=== PATIENT | male | born 1995 | race Caucasian/White ===

== ENCOUNTER 2019-06-23 13:45 | Emergency (ER) | payer BC ==
[~2019-06-23] VITALS: Ht 180.3 cm; Wt 70.2 kg
[2019-06-23 13:49] VITALS: BP 123/69
--- NOTE | 2019-06-23 14:06 | NUR ---
pt seen and evaluated by [facility], pt denies LOC at time of injury. pupils equal, round and reactive. no edema or erythema to face, no drainage noted from nose. pt given dc instructions with instructions to f/u with ENT. pt a&o, resps even and unlabored, amb to dc desk with steady gait, nadn at dc.
== END 2019-06-23 14:07 | disposition home or self-care (01) ==
LOC: ED 14:00
DX: S02.2XXA Fracture of nasal bones, initial encounter for closed fracture (principal); W21.02XA Struck by soccer ball, initial encounter; Y93.66 Activity, soccer; Y92.89 Other specified places as the place of occurrence of the external cause; Y99.8 Other external cause status
CPT/HCPCS: 99282